=== PATIENT | male | born 1955 | race Caucasian/White ===

== ENCOUNTER 2018-12-11 08:30 | Emergency (ER) | payer MEDICAID ==
[~2018-12-11] VITALS: Ht 182.9 cm; Wt 85.8 kg
[2018-12-11 08:33] VITALS: BP 151/78
--- NOTE | 2018-12-11 09:41 | NUR ---
Patient/Caregiver given discharge instructions and they have confirmed that they understand the instructions. Patient ambulatory with steady gait.
== END 2018-12-11 09:42 | disposition home or self-care (01) ==
LOC: ED 08:49
DX: G89.29 Other chronic pain (principal); M25.511 Pain in right shoulder
CPT/HCPCS: 99283